=== PATIENT | female | born 1975 | race Caucasian/White ===

== ENCOUNTER → 2019-05-20 | Outpatient (REF) | payer BC ==
[~2019-05-20] MED LIST: CIPR500T89 PO; NITR100C PO; PYRIDIUM PO; [UNRECOGNIZED DRUG - CODE] IV
[2019-05-20 15:48] LABS: AMORPHOUS SEDIMENT SMALL (NEGATIVE); APPEARANCE, URINE HAZY (CLEAR); BACTERIA, URINE AUTO 1+ (NEGATIVE); BILIRUBIN, URINE AUTO NEGATIVE (NEGATIVE); BLOOD, URINE BLOOD 3+ (NEGATIVE); CALCIUM OXALATE CRYSTALS SMALL; COLOR, URINE YELLOW (YELLOW); GLUCOSE, URINE (UA) AUTO NEGATIVE (NEGATIVE); KETONE, URINE AUTO NEGATIVE (NEGATIVE); LEUKOCYTE ESTERASE, URINE AUTO 1+ (NEGATIVE); MUCUS, URINE SMALL (NEGATIVE); NITRITE, URINE AUTO NEGATIVE (NEGATIVE); PROTEIN, URINE AUTO NEGATIVE (NEGATIVE); RBC, URINE AUTO 2 /HPF (0-3); SPECIFIC GRAVITY URINE AUTO 1.024 (1.002-1.035); SQUAMOUS EPITHELIAL CELL UR AU 6 /HPF (0-6); UROBILINOGEN, URINE AUTO 0.2 mg/dL (0.0-2.0); WBC, URINE AUTO 2 /HPF (0-3)
== END ==
LOC: M LAB REF 15:30
PROVIDERS: ATTEND Physician Assistant
DX: N20.0 Calculus of kidney (principal)

== ENCOUNTER → 2019-06-27 | Outpatient (CLI) | payer BC ==
--- NOTE | 2019-06-27 08:47 | REP ---
Clinical: Pelvic pain and postcoital bleeding. Technique: Transabdominal pelvic ultrasound followed by transvaginal examination for better evaluation of the endometrium and adnexa with color Doppler evaluation of the ovaries. Findings: Bladder is normal and measures 8.3 x 6.7 x 3.5 cm. Anteverted uterus measures 9.2 x 3.6 x 5.9 cm. Endometrial complex measures 5.2 mm thickness. A small amount of fluid is identified with in the cervical canal along with few subcentimeter Nabothian cysts. IUD is identified extending into the cervix and slightly malrotated. Bilateral ovaries are normal in appearance and vascularity without torsion. Right ovary measures 4.1 x 3.1 x 2.8 cm (RI 0.51) and includes 3.6 x 2.2 x 3.5 cm cyst likely physiologic. Left ovary measures 1.8 x 2.9 x 2.8 cm (RI 0.61). No pelvic free fluid or adnexal mass lesion. Impression: 1. IUD appears malpositioned and extending into the cervical region. Small amount of cervical fluid and small presumed Nabothian cysts are also noted. 2. 3.6 cm simple right ovarian cyst likely physiologic. Consider reevaluation in 4-6 weeks to evaluate for resolution. Electronically Signed by Reilly Ward MD 06/27/2019 08:39 A
== END ==
LOC: M RAD 06:21
PROVIDERS: ATTEND Obstetrics & Gynecology
DX: N93.0 Postcoital and contact bleeding (principal)

== ENCOUNTER → 2020-11-20 | Outpatient (CLI) | payer BC ==
[2020-11-20 09:42] LABS: BASO % 0.4 % (0.0-1.0); EOS # 0.3 10^3/uL (0.0-0.5); EOS % 3.4 % (0.0-3.0); HEMATOCRIT 38.8 % (36.0-47.0); HEMOGLOBIN 12.5 g/dl (12.0-15.5); LYMPH % 20.8 % (24.0-44.0); MEAN CORPUSCULAR HEMOGLOBIN 31.5 pg (27.0-33.0); MEAN CORPUSCULAR HGB CONC 32.2 g/dl (32.0-36.5); MEAN CORPUSCULAR VOLUME 97.7 fl (80.0-96.0); MONO # 0.6 10^3/uL (0.0-0.8); MONO % 6.1 % (2.0-8.0); NEUTROPHILS # 6.5 10^3/uL (1.5-8.5); NEUTROPHILS % 68.9 % (36.0-66.0); PLATELET COUNT, AUTOMATED 397 10^3/uL (150-450); RED BLOOD COUNT 3.97 10^6/uL (4.00-5.40); WHITE BLOOD COUNT 9.4 10^3/uL (4.0-10.0)
[2020-11-20 09:43] LABS: APPEARANCE, URINE HAZY (CLEAR); BACTERIA, URINE AUTO 1+ (NEGATIVE); BILIRUBIN, URINE AUTO NEGATIVE (NEGATIVE); BLOOD, URINE BLOOD NEGATIVE (NEGATIVE); COLOR, URINE YELLOW (YELLOW); GLUCOSE, URINE (UA) AUTO NEGATIVE (NEGATIVE); KETONE, URINE AUTO NEGATIVE (NEGATIVE); LEUKOCYTE ESTERASE, URINE AUTO TRACE (NEGATIVE); MUCUS, URINE SMALL (NEGATIVE); NITRITE, URINE AUTO NEGATIVE (NEGATIVE); PROTEIN, URINE AUTO NEGATIVE (NEGATIVE); RBC, URINE AUTO 0 /HPF (0-3); SPECIFIC GRAVITY URINE AUTO 1.016 (1.002-1.035); SQUAMOUS EPITHELIAL CELL UR AU 1 /HPF (0-6); WBC, URINE AUTO 2 /HPF (0-3)
[2020-11-20 10:04] LABS: ERYTHROCYTE SEDIMENTATION RATE 11 mm/hr (0-20)
[2020-11-20 10:06] LABS: ALBUMIN 3.9 GM/DL (3.2-5.2); ALT/SGPT 21 U/L (12-78); BILIRUBIN,TOTAL 0.5 MG/DL (0.2-1.0); BLOOD UREA NITROGEN 10 MG/DL (7-18); C REACTIVE PROTEIN QUANTITATIV 0.54 MG/DL (0.00-0.30); CALCIUM LEVEL 8.4 MG/DL (8.5-10.1); CARBON DIOXIDE LEVEL 22 MEQ/L (21-32); CHLORIDE LEVEL 110 MEQ/L (98-107); CREATININE FOR GFR 0.85 MG/DL (0.55-1.30); GLOMERULAR FILTRATION RATE > 60.0 (>58); GLUCOSE, FASTING 96 MG/DL (70-100); POTASSIUM SERUM 4.3 MEQ/L (3.5-5.1); SODIUM LEVEL 139 MEQ/L (136-145); TOTAL PROTEIN 7.4 GM/DL (6.4-8.2)
== END ==
LOC: M WUC 08:05
PROVIDERS: ATTEND Physician Assistant Medical
DX: R51.9 Headache, unspecified (principal)

== ENCOUNTER → 2021-07-16 | Outpatient (CLI) | payer BC | LOC: M WHC 10:27 | PROVIDERS: ATTEND Obstetrics & Gynecology | DX: Z12.31 Encounter for screening mammogram for malignant neoplasm of breast (principal); Z13.820 Encounter for screening for osteoporosis ==

== ENCOUNTER → 2022-07-08 | Outpatient (CLI) | payer BC | LOC: M EKG 08:42 | PROVIDERS: ATTEND Physician Assistant Medical | DX: R00.2 Palpitations (principal); R42 Dizziness and giddiness ==

== ENCOUNTER → 2022-09-02 | Outpatient (CLI) | payer BC | LOC: M RAD 10:55 | PROVIDERS: ATTEND Physician Assistant Medical | DX: R13.10 Dysphagia, unspecified (principal); R22.1 Localized swelling, mass and lump, neck ==

== ENCOUNTER → 2022-10-07 | Outpatient (CLI) | payer BC ==
[~2022-10-07] MED LIST changes: +ISOVUE-370 76% 100ML VIAL As Ordered ONE
== END ==
LOC: M RAD 08:04
PROVIDERS: ATTEND Nurse Practitioner Adult Health
DX: R22.1 Localized swelling, mass and lump, neck (principal)
CPT/HCPCS: 70491; Q9967

== ENCOUNTER → 2023-03-18 | Outpatient (CLI) | payer BC ==
[~2023-03-18] MED LIST changes: -ISOVUE-370 76% 100ML VIAL As Ordered ONE
== END ==
LOC: M WHC 10:34
PROVIDERS: ATTEND Obstetrics & Gynecology
DX: Z12.31 Encounter for screening mammogram for malignant neoplasm of breast (principal)

== ENCOUNTER → 2024-06-24 | Outpatient (CLI) | payer BC | LOC: M RAD 15:55 | PROVIDERS: ATTEND Physician Assistant Medical | DX: R22.1 Localized swelling, mass and lump, neck (principal); R13.10 Dysphagia, unspecified ==

== ENCOUNTER → 2024-07-11 | Outpatient (CLI) | payer BC | LOC: M WHC 09:16 | PROVIDERS: ATTEND Obstetrics & Gynecology | DX: Z12.31 Encounter for screening mammogram for malignant neoplasm of breast (principal); R92.323 Mammographic fibroglandular density, bilateral breasts ==

== ENCOUNTER 2024-07-29 07:21 | Day surgery (SDC) | payer BC ==
[~2024-07-29] VITALS: Ht 157.5 cm; Wt 72.8 kg
[~2024-07-29 07:21] MED LIST changes: +LIDOCAINE 2% 100MG/5ML SDV (FOR ANES.) As Ordered ONE; +fentaNYL 100 MCG/2 ML INJECTION As Ordered ONE; +propofoL 200 MG/20 ML VIAL As Ordered ONE
[2024-07-29 08:59] VITALS: TEMP 97.9
[2024-07-29 09:11] VITALS: BP 108/59; O2SAT 96
== END 2024-07-29 09:21 | disposition home or self-care (01) ==
LOC: M OPP 07:21
PROVIDERS: ATTEND Surgery
DX: K31.7 Polyp of stomach and duodenum (principal); R13.10 Dysphagia, unspecified; Z91.048 Other nonmedicinal substance allergy status
CPT/HCPCS: 43239; 88305; J3010